=== PATIENT | female | born 1980 | race African-American/Black ===

== ENCOUNTER 2017-07-12 15:33 | Emergency (ER) | payer MEDICAID ==
[~2017-07-12] VITALS: Ht 177.8 cm; Wt 148.0 kg
[2017-07-12 15:37] VITALS: BP 167/98
== END 2017-07-12 16:56 | disposition home or self-care (01) ==
LOC: ER 16:12
DX: K14.6 Glossodynia (principal); I10 Essential (primary) hypertension
CPT/HCPCS: 99283